=== PATIENT | female | born 1980 | race Two or more races ===

== ENCOUNTER 2017-09-06 17:25 | Emergency (ER) | payer MEDICAID ==
[~2017-09-06] VITALS: Ht 157.5 cm; Wt 61.7 kg
[2017-09-06 18:23] VITALS: BP 131/70
== END 2017-09-06 18:45 | disposition home or self-care (01) ==
LOC: ER 17:25
DX: R51 Headache (principal); W01.0XXA Fall on same level from slipping, tripping and stumbling without subsequent striking against object, initial encounter; Y93.89 Activity, other specified; Y92.89 Other specified places as the place of occurrence of the external cause; Y99.8 Other external cause status
CPT/HCPCS: 70450; 81025

== ENCOUNTER 2017-09-07 16:42 | Emergency (ER) | payer MEDICAID | END 2017-09-07 17:06 | disposition left against medical advice (07) | LOC: ER 16:45 | DX: R51 Headache (principal); Z53.21 Procedure and treatment not carried out due to patient leaving prior to being seen by health care provider ==